=== PATIENT | female | born 1980 ===

== ENCOUNTER → 2016-07-21 | Outpatient (CLI) | payer BC | END | disposition home or self-care (01) | LOC: C.PAPS 09:54 | PROVIDERS: ATTEND Family Medicine | DX: Z01.419 Encounter for gynecological examination (general) (routine) without abnormal findings (principal) ==

== ENCOUNTER → 2016-09-14 | Outpatient (CLI) | payer BC | END | disposition home or self-care (01) | LOC: C.PATH 17:19 | PROVIDERS: ATTEND Plastic Surgery | DX: D23.4 Other benign neoplasm of skin of scalp and neck (principal) ==